=== PATIENT | female | born 1990 ===

== ENCOUNTER 2016-11-05 20:04 | Emergency (ER) | payer SELFPAY ==
[2016-11-05 20:04] VITALS: BMI 31.3
[2016-11-05 20:16] VITALS: TEMP 98.8
--- NOTE | 2016-11-05 20:40 | C.PDOC ---
History Of Present Illness Pt c/o of pain to right wrist intermittently x 3 months. Pt states she had an IV placed to that arm but there was no pain at the time. Pain is worse with movement. Denies trauma, weakness or numbness Time Seen by Provider: 11/05/16 20:18 Chief Complaint (Nursing): Upper Extremity Problem/Injury History Per: Patient History/Exam Limitations: no limitations Onset/Duration Of Symptoms: Intermittent Episodes Current Symptoms Are (Timing): Still Present Quality: "Pain" Severity: Moderate Exacerbating Factor(s): Movement Past Medical History Vital Signs: Last Vital Signs Temp 98.8 F 11/05/16 20:10 Pulse 97 H 11/05/16 20:10 Resp 16 11/05/16 20:10 BP 112/71 11/05/16 20:10 Pulse Ox 99 11/05/16 20:10 - Medical History PMH: No Chronic Diseases Family History: States: Unknown Family Hx - Social History Hx Alcohol Use: No Hx Substance Use: No - Immunization History Hx Tetanus Toxoid Vaccination: No Hx Influenza Vaccination: No Hx Pneumococcal Vaccination: No Review Of Systems Musculoskeletal: Positive for: Other (rt wrist ) Neurological: Negative for: Weakness, Numbness Physical Exam - Physical Exam Appears: Well, Non-toxic Skin: Normal Color Head: Atraumatic Eye(s): bilateral: Normal Inspection, PERRL Extremity: Normal ROM, Tenderness (lateral right wrist , radial aspect), Capillary Refill (< 2sec), No Deformity, No Swelling Neurological/Psych: Oriented x3, Normal Motor, Normal Sensation Gait: Steady ED Course And Treatment O2 Sat by Pulse Oximetry: 99 Pulse Ox Interpretation: Normal Progress Note: Motrin PO ordered- Pt has taken in past ( non allergic). Pt placed in a volar splint and advised follow up with PMD Disposition Counseled Patient/Family Regarding: Diagnosis, Need For Followup, Rx Given - Disposition Referrals: [facility] [place] [Outside] Disposition: HOME/ ROUTINE Disposition Time: 20:44 Condition: STABLE Additional Instructions: Please follow up with PMD Take medication as prescribed Keep arm in splint for support Return to ER if worse Prescriptions: Ibuprofen [Motrin] 600 mg PO Q6H #20 tab Instructions: Tendinitis (ED) Print Language: ENGLISH - Clinical Impression Clinical Impression: Right wrist pain
[2016-11-05 20:54] VITALS: BP 119/69; PULSE 85; RESP 18; O2SAT 98
== END 2016-11-05 20:54 | disposition home or self-care (01) ==
LOC: C.ER 20:04
DX: M25.531 Pain in right wrist (principal)

== ENCOUNTER 2017-05-14 16:13 | Emergency (ER) | payer OTHER ==
[2017-05-14 16:13] VITALS: BMI 24.0
[2017-05-14 16:49] VITALS: BP 116/77; PULSE 123; RESP 16; TEMP 98.6; O2SAT 99
[2017-05-14] MEDS ORDERED: Acetaminophen-Codeine 300/30 mg Tab PO STA (17:02)
[2017-05-14] MEDS ORDERED: Acetaminophen-Codeine 300/30 mg Tab PO ONE (17:10)
--- NOTE | 2017-05-14 17:18 | C.PDOC ---
History Of Present Illness 27 year old female presents to the ER complaining of left lower tooth pain which has been present on and off for three months. Patient reports that she has not been able to visit the dentist because she has no insurance. Patient states that she has been taking over the counter medications Tylenol and Orajel which provided transient relief. Time Seen by Provider: 05/14/17 16:55 Chief Complaint (Nursing): Dental Pain History Per: Patient History/Exam Limitations: no limitations Onset/Duration Of Symptoms: Days Current Symptoms Are (Timing): Still Present Severity: Moderate Past Medical History Reviewed: Historical Data, Nursing Documentation, Vital Signs Vital Signs: Last Vital Signs Temp 98.6 F 05/14/17 16:49 Pulse 123 H 05/14/17 16:49 Resp 16 05/14/17 16:49 BP 116/77 05/14/17 16:49 Pulse Ox 99 05/14/17 17:48 - Medical History PMH: No Chronic Diseases Surgical History: No Surg Hx Family History: States: No Known Family Hx - Social History Hx Alcohol Use: No Hx Substance Use: No - Immunization History Hx Tetanus Toxoid Vaccination: No Hx Influenza Vaccination: No Hx Pneumococcal Vaccination: No Review Of Systems ENT: Positive for: Mouth Pain (left lower tooth pain) Physical Exam - Physical Exam Appears: Non-toxic, No Acute Distress Skin: Normal Color, Warm Head: Atraumatic, Normacephalic Eye(s): bilateral: Normal Inspection, EOMI Nose: Normal Oral Mucosa: Moist Tongue: Normal Appearing, No Swelling Lips: Normal Appearing, No Swelling, No Lesions Teeth: Caries (large cavity to the left lower molar), Tender To Palpation (left lower molar), No Loose, No Avulsed Gingiva: Normal Appearing, No Erythema, No Swelling, No Abscess Throat: Normal, No Erythema, No Exudate Neck: Supple Chest: Symmetrical Cardiovascular: Rhythm Regular Respiratory: Normal Breath Sounds, No Accessory Muscle Use Extremity: Bilateral: Atraumatic, Normal Color And Temperature, Normal ROM Neurological/Psych: Oriented x3, Normal Speech, Other (no focal deficits) Gait: Steady ED Course And Treatment O2 Sat by Pulse Oximetry: 99 (RA) Pulse Ox Interpretation: Normal Medical Decision Making Medical Decision Making: Impression: left lower tooth pain Plan: Tylenol and Codeine Reeval: Patient reports that pain is improving. Patient has been given prescription medication and has been advised to follow up with a dental clinic. Disposition Counseled Patient/Family Regarding: Diagnosis, Need For Followup, Rx Given - Disposition Referrals: [facility] [Outside] Disposition: HOME/ ROUTINE Disposition Time: 17:52 Condition: STABLE Additional Instructions: Por favor, siga con la clnica dental para obtener ms cuidados Peters medicamento para el dolor segn sea necesario Prescriptions: Acetaminophen with Codeine [Tylenol with Codeine No. 3 300 mg-30 mg] 1 tab PO Q8 PRN #20 tab PRN Reason: Pain, Moderate (4-7) Ibuprofen [Motrin] 600 mg PO Q8 #30 tab Instructions: Toothache (ED) Forms: [facility], [employer] ([employer]) Print Language: MALAGASY - POA Present On Arrival: None - Clinical Impression Clinical Impression: Dental caries, Toothache - PA / [employer] / Resident Statement MD/DO has reviewed & agrees with the documentation as recorded. - Scribe Statement The provider has reviewed the documentation as recorded by the Theeibe Zachary Forrester Provider Attestation All medical record entries made by the Scribe were at my direction and personally dictated by me. I have reviewed the chart and agree that the record accurately reflects my personal performance of the history, physical exam, medical decision making, and the department course for this patient. I have also personally directed, reviewed, and agree with the discharge instructions and disposition.
== END 2017-05-14 18:05 | disposition home or self-care (01) ==
LOC: C.ER 16:13
DX: K02.9 Dental caries, unspecified (principal)